=== PATIENT | male | born 2005 | race Caucasian/White ===

== ENCOUNTER 2023-04-03 09:30 | Emergency (ER) | payer OTHER, SELFPAY ==
--- NOTE | ~2023-04-03 | XR_ITS ---
EXAMINATION: XR hand LT min 3V DATE: 04/03/2023 11:57 INDICATION: Left thumb laceration. TECHNIQUE: 4 views of left hand were obtained. COMPARISON: None. FINDINGS: Bone alignment is normal. No fracture. Joint spaces are normal. IMPRESSION: 1. No fracture or radiopaque foreign body. Reviewed, dictated and finalized at location A. STRATION CLERK
[2023-04-03 10:00] VITALS: BP 152/87; PULSE 79; RESP 18; TEMP 36.8; O2SAT 100
--- NOTE | 2023-04-03 11:34 | ED_ITS ---
HPI - General Adult General Chief complaint: Wound/Laceration Stated complaint: laceration Time Seen by Provider: 04/03/23 12:14 History of Present Illness HPI narrative: Focused HPI: Jeffery Lockett is a 17 y/o male who presents with reports of cutting left thumb around 0900 with a utility knife while at work, states he needs a UDS done for work as well. About a 2.5 cm laceration to the left thumb / no active bleeding / unknown Tdap status GENERAL: Well-appearing, well-nourished, and in no acute distress. HEAD: Normocephalic, atraumatic. CHEST: Clear to auscultation. ?No respiratory distress. HEART: Regular rate and rhythm.? NEURO: ?Alert and oriented x3. Patient screened in triage and initial orders placed.? ?Additional care and disposition to be based upon?diagnostic testing and treatment. Related Data Allergies Allergy/AdvReac Type Severity Reaction Status Date / Time No Known Allergies Allergy Verified 04/03/23 09:31 Course Vital Signs Vital signs: Vital Signs Temperature 36.8 C 04/03/23 10:00 Pulse Rate 79 04/03/23 10:00 Respiratory Rate 18 04/03/23 10:00 Blood Pressure 152/87 H 04/03/23 10:00 Pulse Oximetry 100 04/03/23 10:00 Oxygen Delivery Room Air 04/03/23 10:00 Temperature 36.8 C 04/03/23 10:00 Pulse Rate 79 04/03/23 10:00 Respiratory Rate 18 04/03/23 10:00 Blood Pressure 152/87 H 04/03/23 10:00 Pulse Oximetry 100 04/03/23 10:00 Oxygen Delivery Room Air 04/03/23 10:00 Medical Decision Making Vital Signs Vital Signs: Vital Signs Temperature 36.8 C 04/03/23 10:00 Pulse Rate 79 04/03/23 10:00 Respiratory Rate 18 04/03/23 10:00 Blood Pressure 152/87 H 04/03/23 10:00 Pulse Oximetry 100 04/03/23 10:00 Oxygen Delivery Room Air 04/03/23 10:00 Temperature 36.8 C 04/03/23 10:00 Pulse Rate 79 04/03/23 10:00 Respiratory Rate 18 04/03/23 10:00 Blood Pressure 152/87 H 04/03/23 10:00 Pulse Oximetry 100 04/03/23 10:00 Oxygen Delivery Room Air 04/03/23 10:00 Discharge Plan Discharge Clinical Impression: Finger laceration Patient Disposition: Home, Self-Care Condition: Stable Instructions: Antibiotic Form, Laceration (ED) Additional Instructions: Return if symptoms are worsening , call your family physician for appointment, take Tylenol as as needed for aches and pain, continue home medications. remove sutures in 8 days, excuse off work today Prescriptions: New cephalexin 500 mg capsule 500 mg PO Q6H 7 Days Qty: 28 0RF Follow-up/Referrals: PHYSICIAN,BUSINESS PRACTICES OFFICER [Non-Staff] - Carlo Sandy MD [Physician] - 04/05/23 Stand Alone Forms: Work/School Release IP
[2023-04-03] MEDS: ACETAMINOPHEN 325 MG TABLET 650 MG PO (12:01)
[2023-04-03] MEDS: IBUPROFEN 400 MG TABLET PO (12:01)
[2023-04-03] MEDS: TETANUS,DIPHTHERIA,AC PERTUSSIS ADULT (0.5 ML) BOOSTRIX IM (12:02)
--- NOTE | 2023-04-03 12:14 | ED.WOUNDLAC ---
HPI - Wound/Laceration General Chief Complaint: Wound/Laceration Stated Complaint: laceration Time Seen by Provider: 04/03/23 12:14 Source: patient Mode of arrival: ambulatory Limitations: no limitations History of Present Illness HPI narrative: patient presents with left thumb laceration, a utility knife, prior to arrival. He denies other injuries. Related Data Allergies Allergy/AdvReac Type Severity Reaction Status Date / Time No Known Allergies Allergy Verified 04/03/23 09:31 Review of Systems Review of Systems: All systems reviewed & are unremarkable except as noted in HPI and below Exam Narrative: General appearance: Well-developed, well-nourished Skin: Normal color Vascular: Normal peripheral pulses, normal capillary refill. Musculoskeletal: Left thumb exam showed 1 cm superficial laceration dorsally, no limited range of motion, no ligament or tendon involved. Neurologic: Alert and oriented ?3, SAMPLE STEAMER is normal as tested, no gross motor deficit Course Vital Signs Vital signs: Vital Signs Temperature 36.8 C 04/03/23 10:00 Pulse Rate 79 04/03/23 10:00 Respiratory Rate 18 04/03/23 10:00 Blood Pressure 152/87 H 04/03/23 10:00 Pulse Oximetry 100 04/03/23 10:00 Oxygen Delivery Room Air 04/03/23 10:00 Temperature 36.8 C 04/03/23 10:00 Pulse Rate 79 04/03/23 10:00 Respiratory Rate 18 04/03/23 10:00 Blood Pressure 152/87 H 04/03/23 10:00 Pulse Oximetry 100 04/03/23 10:00 Oxygen Delivery Room Air 04/03/23 10:00 Procedures Laceration Laceration 1: Date: 04/03/23 Time: 13:02 Site: hand and other ( left thumb) Side (If applicable): left Size (cm): 1 Description: flap and clean Depth: simple, single layer Local Anesthetic: lidocaine 1% Amount of anesthesia used (mL): 3 Pre-repair: wound explored and irrigated ====== Skin Level ====== Skin layer closed with: other ( Ethilon) Size (cm): 6-0 Number of sutures: 3 Technique: simple, interrupted ====== Subcutaneous Layer ====== ====== Muscle Layer ====== ====== Tendon Layer ====== MDM - Wound/Laceration MDM Narrative Medical decision making narrative: Left thumb laceration, utility knife, sutures time 3, patient tolerated procedure well, Differential Diagnosis Differential diagnosis: Likely laceration Medical Records Attestation: I reviewed the patient's medical records. Critical Care Time Critical Care Time Critical Care Time: No Discharge Plan Discharge Clinical Impression: Finger laceration Patient Disposition: Home, Self-Care Condition: Stable Instructions: Antibiotic Form, Laceration (ED) Additional Instructions: Return if symptoms are worsening , call your family physician for appointment, take Tylenol as as needed for aches and pain, continue home medications. remove sutures in 8 days, excuse off work today Prescriptions: New cephalexin 500 mg capsule 500 mg PO Q6H 7 Days Qty: 28 0RF Follow-up/Referrals: PHYSICIAN,FABRIC MACHINE OPERATOR [Primary Care Provider] - Carlo Sandy MD [Physician] - 04/05/23 Stand Alone Forms: Work/School Release IP
== END 2023-04-03 14:07 | disposition home or self-care (01) ==
PROVIDERS: Emergency Provider Emergency Medicine
DX: S61.012A Laceration without foreign body of left thumb without damage to nail, initial encounter (principal); Z23 Encounter for immunization; W26.0XXA Contact with knife, initial encounter
CPT/HCPCS: 12001; 73130; 90471; 90715; 99283; A9270; J1100; J1200; J2405; J2704